=== PATIENT | male | born 1990 | race Caucasian/White ===

== ENCOUNTER 2022-11-16 17:59 | Emergency (ER) | payer BC, MEDICARE, SELFPAY ==
--- NOTE | 2022-11-16 18:19 | ED.URI ---
HPI - URI/Sore Throat General Chief Complaint: Upper Respiratory Infection Stated Complaint: cough; trouble breathing; sore throat Time Seen by Provider: 11/16/22 18:19 Source: patient Mode of arrival: ambulatory Limitations: no limitations History of Present Illness HPI Narrative: Mr. Anderson is a 32-year-old male patient presenting to the clinic today with complaints of cough, difficulty breathing, and sore throat for over 1 week. He reports he has had slight chills with this. States his coughing is worse at night when he strained a lay down MD elicited complaint: sore throat and nasal congestion Related Data Allergies Allergy/AdvReac Type Severity Reaction Status Date / Time No Known Allergies Allergy Verified 08/16/18 19:46 Review of Systems Review of Systems: Pertinent positives per HPI. Patient denies any fever, chills, rash, headache, visual changes, dizziness, chest pain, palpitations, nausea, vomiting, diarrhea, constipation, abdominal pain, or any urinary issues. PMFSH Social History Social History Smoking end date: 11/21/06 Alcohol intake: current Comments At the time of my signature, I reviewed and agree with the nursing past medical, surgical, social, and family history. There is no relevant family history pertinent to the patient complaint. Exam Narrative: General: Well-developed, well nourished, in no apparent distress Head: Normocephalic, atraumatic Eyes: Pupils equally round and reactive to light bilaterally, EOM intact, sclera and conjunctive clear, no discharge, lids normal Ears: TMs intact and clear, ear canals clear, no drainage, grossly hearing normal. Nose: Nares patent, yellow nasal nasal discharge, moderate inflammation, frontal and maxillary sinus tenderness. Mouth: Oral pharynx without lesions or masses, good dentition, MMM. Postnasal drip Neck: Supple, trachea midline, no enlargement of anterior or posterior cervical nodes, no thyroid masses or goiter palpable. Cardio: Regular rate and rhythm, s1 and s2 normal, no murmur appreciated. Resp: Clear to auscultation bilaterally, no rhonchi, rales, wheezing or rubs. Bronchospasms when taking deep breaths Course Course Emergency Course: Portions of this record may have been created with voice recognition software. Level of Care: Express Care Visit Vital Signs Vital signs: Vital Signs Temperature 35.7 C L 11/16/22 18:26 Pulse Rate 116 H 11/16/22 18:26 Respiratory Rate 16 11/16/22 18:26 Blood Pressure 139/102 H 11/16/22 18:26 Pulse Oximetry 98 11/16/22 18:26 Temperature 35.7 C L 11/16/22 18:26 Pulse Rate 116 H 11/16/22 18:26 Respiratory Rate 16 11/16/22 18:26 Blood Pressure 139/102 H 11/16/22 18:26 Pulse Oximetry 98 11/16/22 18:26 Vital signs reviewed MDM - URI/Sore Throat MDM Narrative Medical decision making narrative: At the time of visit patient is resting comfortably on the exam table. I suspect patient has sinusitis with bronchitis. Prescription for Augmentin, prednisone, albuterol inhaler, and Tessalon Perles was sent to the pharmacy. Supportive measures were discussed with the patient he voiced understanding discharge instructions agrees to treatment plan Differential Diagnosis Differential diagnosis: Likely upper respiratory infection, otitis media, sinusitis, viral infection, bronchitis, influenza, pharyngitis and other (COVID) Discharge Plan Discharge Clinical Impression: Bronchitis Sinusitis Qualifiers: Sinusitis location: maxillary Chronicity: acute Recurrence: non-recurrent Qualified Code(s): J01.00 - Acute maxillary sinusitis, unspecified Patient Disposition: Home, Self-Care Condition: Stable Instructions: Antibiotic Form, Sinusitis (ED), Acute Bronchitis (ED) Additional Instructions: Take prescription medications only as prescribed-prednisone, albuterol, Augmentin, and Tessalon Perles Increase fluids
[2022-11-16 18:26] VITALS: BP 139/102; PULSE 116; RESP 16; TEMP 35.7; O2SAT 98
== END 2022-11-16 18:48 | disposition home or self-care (01) ==
PROVIDERS: Emergency Provider Nurse Practitioner Family; PCP Family Medicine
DX: J40 Bronchitis, not specified as acute or chronic (principal); J01.00 Acute maxillary sinusitis, unspecified; Z87.891 Personal history of nicotine dependence; K21.9 Gastro-esophageal reflux disease without esophagitis
CPT/HCPCS: 99203; G0463

== ENCOUNTER 2025-01-05 08:24 | Outpatient (CLI) | payer BC, MEDICARE, SELFPAY ==
--- OUTSIDE RECORDS SUMMARY | 2025-01-05 08:29 | XMS_ITS | Clinical Summary ---
Author Organization [facility] Address [address] [place] [address] Phone Care Team Providers Care Perfume Compounder Name Role Phone Som Duke MD Primary Care Provider Allergies No known active allergies Active Problems Problem Noted Date Diagnosed Date Conversion disorder with abnormal movement 10/09 Major depressive disorder, r ecurrent episode, moderate with anxious distress 10/09/2015 Social History Tobacco Use Types Packs/Day Years Used Date Smoking Tobacco: Never Smokeless Tobacco: Never Alcohol Use Standard Drinks/Week Comments Yes 1 (1 standard drink = 0.6 oz pur e alcohol) Sexually Active Control Partners Comments Yes Oral Contraceptive Female Sex and Gender Information Value Date Recorded Sex Assigned at Not on file Legal Sex Male 8:35 PM CDT Gender Identity Not on file Sexual Orientation Not on file Plan of Treatment Health Maintenance Due Date Last Done Comments Hepatitis C Virus (HCV) Screening 1988 TdaP Immunization 1988 Hepatitis B Immunization (1 of 3 - 19+ 3-dose series) 2007 Influenza Immunization (#1) 2024 SARS-COV-2 Immunization (2023-25 season) 2024 Respiratory Syncytial Virus (RSV) Immunization (Adult) (1 - 1-dose 75+ series) 2063 Meningococcal Immunization (ACWY) Aged Out No longer eligible based on patient's age to complete this topic Pneumococcal Immunization Combined Aged Out No longer eligible based on patient's age to complete this topic Rotavirus Immunization Aged Out No lo nger eligible based on patient's age to complete this topic Insurance MEDICARE [facility] Care Teams Perfume Compounder Relationship Specialty Start Date End Date Som Duke MD [address] [place] [address] PCP - General Family Medicine 09/08/15
--- OUTSIDE RECORDS SUMMARY | 2025-01-05 08:29 | XMS_ITS | Referral Summary ---
Author Organization [facility] Address [address] [place] [address] Care Team Providers Care Parts Sales Associate Name Role Phone Adrian Ontiveros MD Primary Care Provider [phone] Source Comments [facility] [employer],non-owned Affiliates and Associated Physician Practices is amultiple site organization consisting of ambulatory clinics and hospital sitesin [place], [place], [place] and [place]. This disclosure is being madepursuant to the Care Everywhere program and may not contain all information available regarding this patient. Last updated 18.[facility] Allergies No known active allergies Medications * Be aware that medications may not be up to date on this document. Alwaysverify current medications with the patient. Medication Sig Dispensed Refills Start Date End Date Status Calcium Carbonate Antacid (TUMS PO) once daily. Active topiramate (TOPAMAX) 100 MG tablet Take 1 Tab by mouth once daily. Active sertraline (ZOLOFT) 50 MG tablet Take 1 Tab by mouth once daily. Active Active Problems Problem Noted Date Diagnosed Date Conversion disorder 04/04/2013 Tremor 03/28/2012 Social History Tobacco Use Types Packs/Day Years Used Date Smoking Tobacco: Never Alcohol Use Standard Drinks/Week Comments Yes 0 (1 standard drink = 0.6 oz pur e alcohol) Sex and Gender Information Value Date Recorded Sex Assigned at Not on file Gender Identity Not on file Sexual Orientation Not on file Last Filed Vital Signs Vital Sign Reading Time Taken Comments Blood Pressure 124/68 02/14/2012 6:57 PM CDT Pulse 72 02/14/2012 6:57 PM CDT Temperature - - Respiratory Rate 12 02/14/2012 6:57 PM CDT Oxygen Saturation - - Inhaled Oxygen Concentration - - Weight 102.5 kg (226 lb) 04/04/2013 10:32 AM CDT Height 177.8 cm (5' 10 ) 04/04/2013 10:32 AM CDT Body Mass Index 32.43 04/04/2013 10:32 AM CDT Plan of Treatment Not on file Care Teams Parts Sales Associate Relationship Specialty [place] [address] [address] PCP - General 01/28/12
--- OUTSIDE RECORDS SUMMARY | 2025-01-05 08:29 | XMS_ITS | Patient Health Summary ---
Author Organization [facility] Address [address] [place] [address] Care Team Providers Care District Plant Supervisor Name Role Phone Adrian Andrew MD Primary Care Provider [phone] [facility],non-owned Affiliates and Associated Physician Practices is amultiple site organization consisting of ambulatory clinics and hospital sitesin [place], [place], [place] and [place]. This disclosure is being madepursuant to the Care Everywhere program and may not contain all information available regarding this patient. Last updated 18.[facility] Allergies No known active allergies Medications * Be aware that medications may not be up to date on this document. Alwaysverify current medications with the patient. * Calcium Carbonate Antacid (TUMS PO) once daily. * topiramate (TOPAMAX) 100 MG tablet Take 1 Tab by mouth once daily. * sertraline (ZOLOFT) 50 MG tablet Take 1 Tab by mouth once daily. Active Problems Problem Noted Date Diagnosed Date [...] Mass Index 32.43 04/04/2013 10:32 AM CDT Procedures * MRI BRAIN WO CONTRAST(Performed 01/28/2012) Performed for Abnormal involuntary movements, Tremor * EEG(Performed 01/28/2012) Performed for Abnormal involuntary movements, Tremor * GROSS + MICRO EXAM(Performed 07/10/2001) * GROSS + MICRO EXAM(Performed 05/14/1996) Results * MRI BRAIN NON CONTRAST (01/28/2012 5:00 PM COLLECT ON DELIVERY CLERK) Anatomical Region Laterality Modality Head Magnetic Resonan ce 01/29/2012 8:59 AM COLLECT ON DELIVERY CLERK Impressions 01/29/2012 9:08 AM COLLECT ON DELIVERY CLERK 1. No evidence of significant intracranial mass effect or discrete parenchymal signal abnormality on this noncontrast MRI. 2. Near-complete opacification of the right-sided mastoid air cells. Correlate with clinical concern for mastoiditis. Narrative 01/29/2012 9:08 AM COLLECT ON DELIVERY CLERK MRI OF THE BRAIN WITHOUT CONTRAST CLINICAL INDICATION: Involuntary bilateral hand tremors. Movement disorder. COMPARISON: None TECHNIQUE: Multiplanar multisequence MR images of the brain were obtained without contrast. FINDINGS: Diffusion-weighted images fail to demonstrate evidence of diffusion restriction to suggest acute cortical infarction. The verma-white differentiation is preserved. The ventricles, sulci, and cisterns are within normal limits in regards to size. There is no evidence of significant mass effect or midline shift. The temporal lobes are symmetric and normal in appearance. The basal ganglia, brainstem, and cerebellum are also within normal limits. There is minimal mucoperiosteal thickening of the right maxillary sinus, as well as extensive opacification of the majority of the right-sided mastoid air cells. Procedure Note Sae Koroma MD - 01/29/2012 MRI OF THE BRAIN WITHOUT CONTRAST CLINICAL INDICATION: Involuntary bilateral hand tremors. Movement disorder. COMPARISON: None TECHNIQUE: Multiplanar multisequence MR images of the brain were obtained without contrast. FINDINGS: Diffusion-weighted images fail to demonstrate evidence of diffusion restriction to suggest acute cortical infarction. The verma-white differentiation is preserved. The ventricles, sulci, and cisterns are within normal limits in regards to size. There is no evidence of significant mass effect or midline shift. The temporal lobes are symmetric and normal in appearance. The basal ganglia, brainstem, and cerebellum are also within normal limits. There is minimal mucoperiosteal thickening of the right maxillary sinus, as well as extensive opacification of the majority of the right-sided mastoid air cells. IMPRESSION 1. No evidence of significant intracranial mass effect or discrete parenchymal signal abnormality on this noncontrast MRI. 2. Near-complete opacification of the right-sided mastoid air cells. Correlate with clinical concern for mastoiditis. Adrian Andrew MD MR ORDERABLES * EEG (01/28/2012) 01/28/2012 Narrative Transcriptions Adrian Andrew MD - 02/01/2012 11:16 AM CDT [facility] Electroencephalogram [facility] ELECTROENCEPHALOGRAPHIC REPORT PATIENT: WINSTON SHETTY MR#: [id number] DATE OF SERVICE: 01/28/2012CCT#: [id number] : 1990ROOM: REFERRING PHYSICIAN: ADMIT DATE: 01/28/2012 INDICATION: EEG was recorded on a 22 year old patient with history ofspells and abnormal movements. DESCRIPTION: The background consists of up to 10 hertz alpha rangeactivity with a posterior dominant rhythm. The record is continuous andsymmetric with good variability and reactivity. No epileptiformdischarges are seen. No other focal or lateralizing abnormalities arenoted. IMPRESSION: Normal EEG for the patient's age. ADRIAN ANDREW M.D. DTM/PM #: [id number] ELECTROENCEPHALOGRAPHIC REPORT - DP Adrian Andrew MD NEUROLOGY ORDERABLES [facility] * GROSS + MICRO EXAM (07/10/2001 9:35 AM CDT) Only the most recent of2 resultswithin the time period is included. Result CASE NUMBER [id number] [facility] LAB PATH REPORT Comment: ORDERING PHYSICIAN MEGAN HOPPER SPECIMEN TYPE Stomach CLINICAL HISTORY The patient is a 11-year-old boy with abdominal pain who underwent an upper endoscopy. GROSS DESCRIPTION The specimens are received fixed in formalin in three containers for gross and microscopic examination. In the first container labeled A, stomach are three minute fragments of pink-river soft tissue ranging in size from 1 to 3 mm. in greatest dimension. The specimens are submitted in toto as A . In the next container labeled B, esophagus are two 2 mm. fragments of verma-river soft tissue submitted in toto as B . In the next container labeled C, duodenum is a single 2 mm. fragment of pink-river soft tissue submitted in toto as C . (CT/akn) MICROSCOPIC DESCRIPTION A) 3 H/E, B) 3 H/E, C) 3 H/E Sections of the stomach show few fragments of unremarkable small bowel mucosa. Sections of the esophagus show esophageal epithelium which is non- keratinized squamous and have increased numbers of intraepithelial lymphocytes and a few eosinophils present. The duodenal biopsy shows unremarkable small bowel mucosa with tall prominent villi. (CSA/AE/kb) DIAGNOSIS DIAGNOSIS A) STOMACH, BIOPSY - NO PATHOLOGIC DIAGNOSIS. B) ESOPHAGUS, BIOPSY - ESOPHAGITIS (MILD). C) DUODENUM, BIOPSY - NO PATHOLOGIC DIAGNOSIS. Bell Clerk Jolie Wilkinson RESIDENT IN PATHOLOG Nasir Esqueda M.D. PATHOLOGIST Kenn Oscar M.D. ELECTRONICALLY VERO Kenn Oscar MISCELLANEOUS SAMPLES / Unknown 07/10/2001 9:35 AM CDT 07/10/2001 10:58 AM CDT Historical Provider LAB - PATHOLOGY/C YTOLOGY ORDERABLES [facility] PATH REPORT Care Teams District Plant Supervisor Relationship Specialty [place] [address] [address] PCP - General 01/28/12
--- OUTSIDE RECORDS SUMMARY | 2025-01-05 08:29 | XMS_ITS | Clinical Summary ---
Author Organization [facility] Address [address] [place] [address] Care Team Providers Care Apron Worker Name Role Phone Adrian Ontiveros MD Primary Care Provider [phone] Source Comments [facility] [employer],non-owned Affiliates and Associated Physician Practices is amultiple site organization consisting of ambulatory clinics and hospital sitesin [place], [place], [place] and [place]. This disclosure is being madepursuant to the Care Everywhere program and may not contain all information available regarding this patient. Last updated 18.[facility] [employer] Allergies No known active allergies Medications * [...] 04/04/2013 10:32 AM CDT Plan of Treatment Health Maintenance Due Date Last Done Comments HIV SCREENING 2003 HEPATITIS C SCREENING 12/28/2005 DTAP/TDAP/TD VACCINES (1 - Tdap) 2007 HEPATITIS B VACCINE (1 of 3 - 19+ 3-dose series) 2007 COVID-19 VACCINE (1 - 2023-2 5 season) 2024 INFLUENZA VACCINE (#1) 2024 DEPRESSION SCREENING 11/21/2024 ZOSTER VACCINE (1 of 2) 2038 HIB VACCINE Aged Out No longer eligi ble based on patient's age to complete this topic HPV VACCINE Aged Out No longer eligi ble based on patient's age to complete this topic MENINGOCOCCAL (Group B) VACCINE Aged Out No longer eligible based on patient's age to complete this topic MENINGOCOCCAL VACCINE Aged Out No samm van eligible based on patient's age to complete this topic PNEUMOCOCCAL VACCINE Aged Out No long er eligible based on patient's age to complete this topic Care Teams Apron Worker Relationship Specialty [place] [address] [place] [id number] PCP - General 3/9/12
[2025-01-05 10:04] LABS: Alanine Aminotransferase 87 U/L (6-50); Albumin Level 4.2 g/dL (3.5-5.1); Alkaline Phosphatase 100 U/L (38-126); Anion Gap 9 mmol/L (4-12); Aspartate Amino Transferase 38 U/L (17-59); Bilirubin,Total 0.9 mg/dL (0.2-1.3); Blood Urea Nitrogen 15 mg/dL (9-20); Calcium 9.5 mg/dL (8.4-10.2); Carbon Dioxide 29 mmol/L (22-30); Chloride 99 mmol/L (98-107); Cholesterol 192 mg/dL (0-200); Estimated Glomerular Filt Rate > 60; Glucose 270 mg/dL (65-110); HDL Direct 34 mg/dL; Potassium 4.1 mmol/L (3.4-5.0); Sodium 137 mmol/L (137-145); Triglycerides 249 mg/dL (<150)
[2025-01-05 10:21] LABS: LDL Cholesterol Direct 136 mg/dL
[2025-01-05 10:39] LABS: Hemoglobin A1C 10.1 % (<5.7)
== END 2025-01-05 08:25 | disposition home or self-care (01) ==
LOC: ANHLAB 08:25
PROVIDERS: PCP Family Medicine; Visit Provider Family Medicine
DX: E11.65 Type 2 diabetes mellitus with hyperglycemia (principal); E78.5 Hyperlipidemia, unspecified
CPT/HCPCS: 36415; 80053; 80061; 83036

== ENCOUNTER 2025-02-19 14:15 | Outpatient (RCR) | payer BC, MEDICARE, SELFPAY | END 2025-04-17 23:59 | disposition home or self-care (01) | LOC: ANHDMC 14:15 | PROVIDERS: PCP Family Medicine; Visit Provider Physician Assistant | DX: E11.65 Type 2 diabetes mellitus with hyperglycemia (principal); Z71.89 Other specified counseling | CPT/HCPCS: G0108 ==

== ENCOUNTER 2025-05-04 08:56 | Outpatient (CLI) | payer BC, MEDICARE, SELFPAY ==
--- OUTSIDE RECORDS SUMMARY | 2025-05-04 08:59 | XMS_ITS | Clinical Summary ---
Author Organization [facility] Address [address] [place] [address] Care Team Providers Care Meeting Planner Name Role Phone Adrian Ontiveros MD Primary Care Provider [phone] Source Comments [facility] [employer],non-owned Affiliates and Associated Physician Practices is amultiple site organization consisting of ambulatory clinics and hospital sitesin [place], [place], [place] and [place]. This disclosure is being madepursuant to the Care Everywhere program and may not contain all information available regarding this patient. Last updated 18.[facility] [employer] Allergies No known active allergies Medications * Be aware that medications may not be up to date on this document. Alwaysverify current medications with the patient. Calcium Carbonate Antacid (TUMS PO) once daily. 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 Gender Identity Not on file Sexual Orientation [...] 10:32 AM CDT Height 177.8 cm (5' 10) 04/04/2013 10:32 AM CDT Body Mass Index 32.43 04/04/2013 10:32 AM CDT Plan of Treatment Health Maintenance Due Date Last Done Comments HIV SCREENING 2003 HEPATITIS C SCREENING 12/28/2005 DTAP/TDAP/TD VACCINES (1 - Tdap) 2007 HEPATITIS B VACCINE (1 of 3 - 19+ 3-dose series) 2007 COVID-19 VACCINE (1 - 2023-2 5 season) 2024 DEPRESSION SCREENING 11/21/2024 INFLUENZA VACCINE (Season Ended) 2025 ZOSTER VACCINE (1 of 2) 2038 HIB VACCINE Aged Out No longer eligi ble based on patient's age to complete this topic HPV VACCINE Aged Out No longer eligi ble based on patient's age to complete this topic MENINGOCOCCAL (Group B) VACC INE SHARED DECISION-MAKING Aged Out No longer eligibl e based on patient's age to complete this topic MENINGOCOCCAL GROUPS A/C/Y/W VACCINE Aged Out No longer eligible b ased on patient's age to complete this topic PNEUMOCOCCAL VACCINE Aged Out No long er eligible based on patient's age to complete this topic Insurance [facility] MEDICAID [employer] Care Teams Meeting Planner Relationship Specialty [place] [address] [phone] PCP - General 01/28/12
--- OUTSIDE RECORDS SUMMARY | 2025-05-04 08:59 | XMS_ITS | Clinical Summary ---
Author Organization [facility] Address [address] [place] [address] Phone Care Team Providers Care Supervisor Scouring Pads Name Role Phone Som Duke MD Primary [...] 2007 Influenza Immunization (#1) 2024 SARS-COV-2 Immunization (2023- season) 2024 Respiratory Syncytial Virus (RSV) Immunization [...] age to complete this topic Insurance MEDICARE [facility] Care Teams Supervisor Scouring Pads Relationship Specialty Start Date End Date Som Duke MD [address] [place] [address] PCP - General Family Medicine 09/08/15
[2025-05-04 09:27] LABS: Alanine Aminotransferase 31 U/L (6-50); Albumin Level 4.3 g/dL (3.5-5.1); Alkaline Phosphatase 69 U/L (38-126); Anion Gap 8 mmol/L (4-12); Aspartate Amino Transferase 25 U/L (17-59); Bilirubin,Total 0.4 mg/dL (0.2-1.3); Blood Urea Nitrogen 20 mg/dL (9-20); Calcium 9.2 mg/dL (8.4-10.2); Carbon Dioxide 28 mmol/L (22-30); Chloride 105 mmol/L (98-107); Cholesterol 148 mg/dL (0-200); Estimated Glomerular Filt Rate > 60; Glucose 98 mg/dL (65-110); HDL Direct 37 mg/dL; Potassium 4.4 mmol/L (3.4-5.0); Sodium 141 mmol/L (137-145); Total Protein 7.5 g/dL (6.3-8.2); Triglycerides 143 mg/dL (<150)
[2025-05-04 09:38] LABS: LDL Cholesterol Direct 79 mg/dL
[2025-05-04 09:59] LABS: Hemoglobin A1C 5.2 % (<5.7)
== END 2025-05-04 08:57 | disposition home or self-care (01) ==
LOC: ANHLAB 08:58
PROVIDERS: PCP Family Medicine; Visit Provider Family Medicine
DX: E78.5 Hyperlipidemia, unspecified (principal); I10 Essential (primary) hypertension; E11.65 Type 2 diabetes mellitus with hyperglycemia
CPT/HCPCS: 36415; 80053; 80061; 83036

== ENCOUNTER 2025-05-08 09:08 | Outpatient (RCR) | payer BC, MEDICARE, SELFPAY | END 2025-05-09 16:13 | disposition home or self-care (01) | LOC: ANHDMC 09:08 | PROVIDERS: PCP Family Medicine; Visit Provider Physician Assistant | DX: E11.65 Type 2 diabetes mellitus with hyperglycemia (principal); Z71.89 Other specified counseling | CPT/HCPCS: G0108 ==

== ENCOUNTER 2025-09-06 07:24 | Outpatient (CLI) | payer BC, MEDICARE, SELFPAY ==
--- OUTSIDE RECORDS SUMMARY | 2025-09-06 07:29 | XMS_ITS | Clinical Summary ---
Author Organization [facility] Address [address] [place] [address] Phone Care Team Providers Care Client Technologies Analyst Name Role Phone Som Duke MD Primary [...] of 3 - 19+ 3-dose series) 2007 Human Papillomavirus (HPV) Immunization (1 - 3-dose SCDM series) 2015 Influenza Immunization (#1) 2025 SARS-COV-2 Immunization ( season) 2025 Respiratory Syncytial Virus (RSV) Immunization (Adult) (1 [...] MEDICARE [facility] Care Teams Client Technologies Analyst Relationship Specialty Start Date End Date Som Duke MD [address] [place] [address] PCP - General Family Medicine 09/08/15
--- OUTSIDE RECORDS SUMMARY | 2025-09-06 07:29 | XMS_ITS | Clinical Summary ---
Author Organization [facility] Address [address] [place] [address] Care Team Providers Care Clinic Office Assistant Name Role Phone Adrian Ontiveros MD Primary Care Provider [phone] [facility] [employer],non-owned Affiliates and Associated Physician Practices is amultiple site organization consisting of ambulatory clinics and hospital sitesin [place], [place], [place] and [place]. This disclosure is being madepursuant to the Care Everywhere program and may not contain all information available regarding this patient. Last updated 18.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
[2025-09-06 09:25] LABS: Hemoglobin A1C 5.0 % (<5.7)
[2025-09-06 09:35] LABS: Alanine Aminotransferase 26 U/L (6-50); Albumin Level 4.4 g/dL (3.5-5.1); Alkaline Phosphatase 83 U/L (38-126); Anion Gap 9 mmol/L (4-12); Aspartate Amino Transferase 31 U/L (17-59); Bilirubin,Total 0.3 mg/dL (0.2-1.3); Blood Urea Nitrogen 17 mg/dL (9-20); Calcium 9.3 mg/dL (8.4-10.2); Carbon Dioxide 25 mmol/L (22-30); Chloride 104 mmol/L (98-107); Estimated Glomerular Filt Rate > 60; Glucose 88 mg/dL (65-110); Potassium 4.0 mmol/L (3.4-5.0); Sodium 138 mmol/L (137-145); Total Protein 7.5 g/dL (6.3-8.2)
[2025-09-06 09:42] LABS: MALB Creatinine Ratio 6.9 mg/g (0-30)
== END 2025-09-06 07:25 | disposition home or self-care (01) ==
PROVIDERS: PCP Family Medicine; Visit Provider Family Medicine
DX: E11.65 Type 2 diabetes mellitus with hyperglycemia (principal)
CPT/HCPCS: 36415; 80053; 82043; 83036

== ENCOUNTER 2025-09-25 13:02 | Outpatient (CLI) | payer BC, MEDICARE, SELFPAY | END 2025-09-25 13:03 | disposition home or self-care (01) | LOC: ANHAUDASC 13:04 | PROVIDERS: PCP Family Medicine | DX: H91.90 Unspecified hearing loss, unspecified ear (principal) | CPT/HCPCS: 92557; 92567 ==